=== PATIENT | male | born 1990 | race Caucasian/White ===

== ENCOUNTER 2020-10-05 18:40 | Emergency (ER) | payer OTHER ==
[~2020-10-05] VITALS: Ht 182.9 cm; Wt 104.3 kg
--- NOTE | 2020-10-05 18:40 | NUR ---
Patient [facility] accompanied by [place] [employer] for pre-booking medical evaluation, transferred to [facility]. RN evaluating patient.
[2020-10-05 18:42] VITALS: BP 139/85
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
[2020-10-05] MEDS ORDERED: KETOROLAC 60 MG/2 ML VIAL IM ONE (19:10)
--- NOTE | 2020-10-05 20:44 | NUR ---
PATIENT BIB [place] [employer]. PATIENT EXAMINED BY DR. FONTENOT. PATIENT MEDICALLY CLEARED AND RELEASED IN CUSTODY IN STABLE CONDITION. ORIGINAL PRE-BOOK FORM GIVEN TO OFFICER RACHEAL #[id number].
--- NOTE | 2020-10-05 20:44 | NUR ---
EYEPATCH PLACED TO LT EYE BY EMT
== END 2020-10-05 20:44 ==
LOC: MED 18:40
DX: S90.31XA Contusion of right foot, initial encounter (principal); S90.01XA Contusion of right ankle, initial encounter; R51.9 Headache, unspecified; I10 Essential (primary) hypertension; Y04.0XXA Assault by unarmed brawl or fight, initial encounter; Y93.89 Activity, other specified; Y92.89 Other specified places as the place of occurrence of the external cause; Y99.8 Other external cause status
CPT/HCPCS: 70486; 73610; 73630; 96372; 99284; J1885